=== PATIENT | female | born 1965 | race Caucasian/White ===

== ENCOUNTER → 2019-02-13 | Outpatient (CLI) | payer OTHER ==
[2019-02-13 13:19] VITALS: BP 110/78; PULSE 80; TEMP 97.8; BMI 34.0
--- NOTE | 2019-02-13 15:37 | P.HPBAR ---
Bariatric H&P - History & Physicial H&P Date: 02/13/19 History & Physicial: Visit/CC: lap band follow up Patient initial contact: Initial weight: Initial weight in pounds: Height: 5 ft 3.5 in Initial BMI: Last weight: Current weight: 88.677 kg Current weight in pounds: 195.50 Current BMI: 34.0 [place] body weight (based on NIH guidelines): 53.297 kg Excess body weight loss: The patient is a 54 year-old F who presents for Bariatric Assessment. Patient presents today for LAP-BAND adjustment. She's had some mild complaints of dysphagia. Past Medical History Past Medical History: Coronary Artery Disease (CAD) History of Any Multi-Drug Resistant Organisms: None Reported Past Surgical History: Adenoidectomy, Section, Cholecystectomy, Heart Catheterization With Stent, Tonsillectomy Additional Past Surgical History / Comment(s): c section x 3 last stend placement 2009 Past Anesthesia/Blood Transfusion Reactions: No Reported Reaction Date of Last Stent Placement:: 2009 Smoking Status: Current every day smoker Surgical - Exam Vital Signs Temp Pulse BP 97.8 F 80 110/78 02/13/19 13:09 02/13/19 13:09 02/13/19 13:09 - General well developed, well nourished, no distress - Abdomen Abdomen: soft, non tender Bariatric Assessment & Plan Plan: Dysphagia. LAP-BAND was adjusted. 1 mL remove the band. She was 3.5 mL band. She'll follow-up in 4 weeks. Bariatric Checklist Checklist: Plan: Checklist: EGD: 1. Hiatal hernia: 2. H. Pylori: HgbA1c: Vitamin D: Smoking: Current every day smoker Primary care physician referral: dr jarrett in [place] Psychiatry clearance: Cardiology clearance: Sleep study: Diet journal: VTE risk score: VTE risk level: Rehab needs at discharge:
== END ==
LOC: BARWHC3 12:02
PROVIDERS: ATTEND Surgery
DX: Z48.815 Encounter for surgical aftercare following surgery on the digestive system (principal); R13.10 Dysphagia, unspecified; F17.200 Nicotine dependence, unspecified, uncomplicated; Z98.84 Bariatric surgery status
CPT/HCPCS: 99212

== ENCOUNTER → 2020-10-28 | Outpatient (CLI) | payer BC, OTHER ==
[2020-10-28 14:46] VITALS: BP 141/83; PULSE 63; RESP 18; TEMP 97.5; BMI 34.7
--- NOTE | 2020-11-11 11:17 | P.HPBAR ---
Bariatric H&P - History & Physicial H&P Date: 10/28/20 History & Physicial: Visit/CC: follow up / lap band Patient initial contact: Initial weight: Initial weight in pounds: Height: 5 ft 3.5 in Initial BMI: Last weight: Current weight: 90.265 kg Current weight in pounds: 199.00 Current BMI: 34.7 [place] body weight (based on NIH guidelines): 53.297 kg Excess body weight loss: The patient is a 55 year-old F who presents for Bariatric Assessment. Patient presents today for lab band follow up. She is requesting conversion to sleeve gastrectomy. She's had issues with chronic dysphagia and GERD. Past Medical History Past Medical History: Coronary Artery Disease (CAD) History of Any Multi-Drug Resistant Organisms: None Reported Past Surgical History: Adenoidectomy, Appendectomy, Section, Cholecystectomy, Heart Catheterization With Stent, Tonsillectomy Additional Past Surgical History / Comment(s): c section x 3 last stend placement 2009; venisure done outpatient in 07/2020 on the right leg. Past Anesthesia/Blood Transfusion Reactions: No Reported Reaction Date of Last Stent Placement:: 2009 Past Psychological History: Anxiety Smoking Status: Current every day smoker Past Alcohol Use History: None Reported Additional Past Alcohol Use History / Comment(s): smokes one pack per day Past Drug Use History: None Reported Surgical - Exam Vital Signs Temp Pulse Resp BP 97.5 F L 63 18 141/83 10/28/20 14:39 10/28/20 14:39 10/28/20 14:39 10/28/20 14:39 - General well developed, well nourished, no distress - Eyes PERRL - ENT normal pinna - Abdomen Abdomen: soft, non tender Bariatric Assessment & Plan Plan: Chronic dysphagia and GERD. Patient will be attempted to obtain insurance authorization for conversion to sleeve gastrectomy. She will be set up for EGD. Bariatric Checklist Checklist: Plan: Checklist: EGD: 1. Hiatal hernia: 2. H. Pylori: HgbA1c: Vitamin D: Smoking: Current every day smoker Primary care physician referral: dr jarrett in [place] Psychiatry clearance: Cardiology clearance: Sleep study: Diet journal: VTE risk score: VTE risk level: Rehab needs at discharge:
== END | disposition home or self-care (01) ==
LOC: BARWHC3 14:10
PROVIDERS: ATTEND Surgery
DX: K21.9 Gastro-esophageal reflux disease without esophagitis (principal); R13.10 Dysphagia, unspecified; Z90.49 Acquired absence of other specified parts of digestive tract
CPT/HCPCS: 99211

== ENCOUNTER → 2020-11-25 | Outpatient (CLI) | payer BC ==
[2020-11-25 15:11] VITALS: BP 104/72; PULSE 76; RESP 18; TEMP 98.2; BMI 34.0
--- NOTE | 2020-12-02 15:32 | P.HPBAR ---
Bariatric H&P - History & Physicial H&P Date: 11/25/20 History & Physicial: Visit/CC: follow up / lap band Patient initial contact: Initial weight: Initial weight in pounds: Height: 5 ft 3.5 in Initial BMI: Last weight: Current weight: 88.451 kg Current weight in pounds: 195.00 Current BMI: 34.0 [place] body weight (based on NIH guidelines): 53.297 kg Excess body weight loss: The patient is a 55 year-old F who presents for Bariatric Assessment. She presents today for laparoscopic adjustable. She claims unretroflexed requesting a fill. Past Medical History Past Medical History: Coronary Artery Disease (CAD) History of Any Multi-Drug Resistant Organisms: None Reported Past Surgical History: Adenoidectomy, Appendectomy, Section, Cholecystectomy, Heart Catheterization With Stent, Tonsillectomy Additional Past Surgical History / Comment(s): c section x 3 last stend placement 2009; venisure done outpatient in 07/2020 on the right leg. Past Anesthesia/Blood Transfusion Reactions: No Reported Reaction Date of Last Stent Placement:: 2009 Past Psychological History: Anxiety Smoking Status: Current every day smoker Past Alcohol Use History: None Reported Additional Past Alcohol Use History / Comment(s): smokes one pack per day Past Drug Use History: None Reported Surgical - Exam Vital Signs Temp Pulse Resp BP 98.2 F 76 18 104/72 11/25/20 15:08 11/25/20 15:08 11/25/20 15:08 11/25/20 15:08 - General well developed, well nourished, no distress - Eyes PERRL - ENT normal pinna - Neck no masses - Respiratory normal expansion - Cardiovascular Rhythm: regular - Abdomen Abdomen: soft, non tender Bariatric Assessment & Plan Plan: Patient LAP-BAND was just. She had 1 mL added to the band. She currently is 4.5 mL in bed. She'll follow-up in 4 weeks. Bariatric Checklist Checklist: Plan: Checklist: EGD: 1. Hiatal hernia: 2. H. Pylori: HgbA1c: Vitamin D: Smoking: Current every day smoker Primary care physician referral: dr jarrett in [place] Psychiatry clearance: Cardiology clearance: Sleep study: Diet journal: VTE risk score: VTE risk level: Rehab needs at discharge:
== END ==
LOC: BARWHC3 14:11
PROVIDERS: ATTEND Surgery
DX: Z46.51 Encounter for fitting and adjustment of gastric lap band (principal); I25.10 Atherosclerotic heart disease of native coronary artery without angina pectoris; F41.9 Anxiety disorder, unspecified; F17.210 Nicotine dependence, cigarettes, uncomplicated; Z98.890 Other specified postprocedural states
CPT/HCPCS: 99212

== ENCOUNTER → 2020-11-27 | Outpatient (CLI) | payer BC ==
[2020-11-27 10:00] VITALS: BP 127/82; PULSE 76; TEMP 98.2; BMI 33.1
--- NOTE | 2020-11-27 15:29 | P.HPBAR ---
Bariatric H&P - History & Physicial H&P Date: 11/27/20 History & Physicial: Visit/CC: lap bnd follow up Patient initial contact: Initial weight: Initial weight in pounds: Height: 5 ft 3.5 in Initial BMI: Last weight: Current weight: 86.183 kg Current weight in pounds: 190.00 Current BMI: 33.1 [place] body weight (based on NIH guidelines): 53.297 kg Excess body weight loss: The patient is a 55 year-old F who presents for Bariatric Assessment. Patient resents today for LAP-BAND adjustment. She's had trouble dysphagia. Past Medical History Past Medical History: Coronary Artery Disease (CAD) History of Any Multi-Drug Resistant Organisms: None Reported Past Surgical History: Adenoidectomy, Appendectomy, Section, Cholecystectomy, Heart Catheterization With Stent, Tonsillectomy Additional Past Surgical History / Comment(s): c section x 3 last stend placement 2009; venisure done outpatient in 07/2020 on the right leg. Past Anesthesia/Blood Transfusion Reactions: No Reported Reaction Date of Last Stent Placement:: 2009 Smoking Status: Current every day smoker Surgical - Exam Vital Signs Temp Pulse BP 98.2 F 76 127/82 11/27/20 09:58 11/27/20 09:58 11/27/20 09:58 - General well developed, well nourished, no distress - Eyes PERRL - ENT normal pinna - Neck no masses - Respiratory normal expansion - Cardiovascular Rhythm: regular - Abdomen Abdomen: soft, non tender Bariatric Assessment & Plan Plan: Patient's lap incision just. She had 0.5 mL removed from her band. She currently is 4 mL in the band. She'll follow-up in one week. Bariatric Checklist Checklist: Plan: Checklist: EGD: 1. Hiatal hernia: 2. H. Pylori: HgbA1c: Vitamin D: Smoking: Current every day smoker Primary care physician referral: dr jarrett in [place] Psychiatry clearance: Cardiology clearance: Sleep study: Diet journal: VTE risk score: VTE risk level: Rehab needs at discharge:
== END ==
LOC: BARWHC3 09:39
PROVIDERS: ATTEND Surgery
DX: Z46.51 Encounter for fitting and adjustment of gastric lap band (principal); I25.10 Atherosclerotic heart disease of native coronary artery without angina pectoris; F17.200 Nicotine dependence, unspecified, uncomplicated; Z98.84 Bariatric surgery status; Z79.82 Long term (current) use of aspirin
CPT/HCPCS: 99212

== ENCOUNTER → 2023-10-04 | Outpatient (CLI) | payer BC ==
[2023-10-04 11:23] VITALS: BP 123/79; PULSE 105; TEMP 97.4; BMI 32.2
--- NOTE | 2023-10-04 11:31 | P.HPBAR ---
Bariatric H&P - History & Physicial H&P Date: 10/04/23 History & Physicial: Visit/CC: lap band/pain Patient initial contact: Initial weight: Initial weight in pounds: Height: 5 ft 3.5 in Initial BMI: Last weight: Current weight: 83.915 kg Current weight in pounds: 185.00 Current BMI: 32.2 [place] body weight (based on NIH guidelines): 53.297 kg Excess body weight loss: The patient is a 58 year-old F who presents for Bariatric Assessment. Patient has complaints of pain at her port site. She is also requesting a fill of her LAP-BAND. Past Medical History Past Medical History: Coronary Artery Disease (CAD) History of Any Multi-Drug Resistant Organisms: None Reported Past Surgical History: Adenoidectomy, Appendectomy, Section, Cholecystectomy, Heart Catheterization With Stent, Tonsillectomy Additional Past Surgical History / Comment(s): c section x 3 last stend placement 2009; venisure done outpatient in 07/2020 on the right leg. triple bypass oct 2022 [facility] Past Anesthesia/Blood Transfusion Reactions: No Reported Reaction Date of Last Stent Placement:: 2009 Past Psychological History: Anxiety Smoking Status: Current every day smoker Past Alcohol Use History: None Reported Additional Past Alcohol Use History / Comment(s): smokes one pack per day Past Drug Use History: None Reported Surgical - Exam Vital Signs Temp Pulse BP 97.4 F L 105 H 123/79 10/04/23 10:58 10/04/23 10:58 10/04/23 10:58 - General well developed, well nourished, no distress - Eyes PERRL - ENT normal pinna, normal nares - Neck no masses - Respiratory normal expansion Bariatric Assessment & Plan Plan: Patient LAP-BAND was just. She has 0.3 mL added to the band. She currently has 4.3 mL in the band. Bariatric Checklist Checklist: Plan: Checklist: EGD: 1. Hiatal hernia: 2. H. Pylori: HgbA1c: Vitamin D: Smoking: Current every day smoker Primary care physician referral: [facility] Psychiatry clearance: Cardiology clearance: Sleep study: Diet journal: VTE risk score: VTE risk level: Rehab needs at discharge:
== END ==
LOC: BARWHC3 10:35
PROVIDERS: ATTEND Surgery
DX: E66.01 Morbid (severe) obesity due to excess calories (principal); F41.9 Anxiety disorder, unspecified; F17.210 Nicotine dependence, cigarettes, uncomplicated; I25.10 Atherosclerotic heart disease of native coronary artery without angina pectoris; Z46.51 Encounter for fitting and adjustment of gastric lap band; Z98.84 Bariatric surgery status; Z68.32 Body mass index [BMI] 32.0-32.9, adult; Z79.82 Long term (current) use of aspirin; Z79.02 Long term (current) use of antithrombotics/antiplatelets
CPT/HCPCS: 43999